=== PATIENT | female | born 1955 | race Caucasian/White ===

== ENCOUNTER 2017-11-20 09:32 | Emergency (ER) | payer OTHER ==
[~2017-11-20] VITALS: Ht 175.3 cm; Wt 72.6 kg
[~2017-11-20 09:32] MED LIST: ESTR.05PBW TOP; FOLI1 PO; HYDSUL200 PO; METTREX2.5 PO; PROC5 PO; PROG100 PO
[2017-11-20 11:09] LABS: BASOPHILS ABSOLUTE AUTO 0.04 K/mm3 (0.00-0.23); BASOPHILS PERCENT AUTO 0 % (0-2); EOSINOPHILS ABSOLUTE AUTO 0.05 K/mm3 (0.00-0.68); EOSINOPHILS PERCENT AUTO 1 % (0-6); Hematocrit 42.1 % (33.0-51.0); Hemoglobin 13.6 g/dL (11.5-16.0); IMMATURE GRAN ABSOLUTE AUTO 0.04 K/mm3 (0.00-0.10); IMMATURE GRAN PERCENT AUTO 0 % (0-1); LYMPHOCYTES ABSOLUTE AUTO 0.83 K/mm3 (0.84-5.20); LYMPHOCYTES PERCENT AUTO 9 % (21-46); MONOCYTES ABSOLUTE AUTO 0.41 K/mm3 (0.16-1.47); MONOCYTES PERCENT AUTO 4 % (4-13); Mean Corpuscular HGB 30.8 pg (26.0-34.0); Mean Corpuscular HGB Conc 32.3 g/dL (31.5-36.5); Mean Corpuscular Volume 95 fL (80-100); Mean Platelet Volume 9.3 fL (9.1-12.4); NEUTROPHILS ABSOLUTE AUTO 8.39 K/mm3 (1.96-9.15); NEUTROPHILS PERCENT AUTO 86 % (41-73); Platelet Count 238 K/mm3 (150-400); RDW Coefficient Variation 12.4 % (11.7-14.2); RDW Standard Deviation 43.6 fL (35.1-46.3); Red Blood Cell Count 4.42 M/mm3 (3.80-5.20); White Blood Cell Count 9.76 K/mm3 (4.00-11.30)
[2017-11-20] MEDS ORDERED: SUMA25 PO (11:28)
[2017-11-20 11:29] LABS: Alanine Aminotransfer (ALT/SGP 19 U/L (12-78); Albumin, Blood 3.4 g/dL (3.4-5.0); Alk Phos 82 U/L (50-136); Anion Gap 7 mmol/L (6-16); Aspartate Aminotrans (AST/SGOT 21 U/L (12-37); Bilirubin, Total 0.3 mg/dL (0.1-1.0); Blood Urea Nitrogen 19 mg/dL (8-24); Bun/Creatinine Ratio 24.1 (12.0-20.0); CO2, Blood 25 mmol/L (21-32); Calcium, Blood 8.4 mg/dL (8.5-10.1); Chloride, Blood 109 mmol/L (98-108); Creatinine, Blood 0.79 mg/dL (0.40-1.00); Globulin, Blood 3.3 g/dL (2.2-4.0); Glomerular Filtration Rate >60 (60-); Glucose, Blood 102 mg/dL (70-99); Potassium, Blood 3.9 mmol/L (3.5-5.5); Sodium, Blood 141 mmol/L (136-145); Total Protein, Blood 6.7 g/dL (6.4-8.2)
[2017-11-20] MEDS ORDERED: KETO10 PO (13:09)
[2017-11-20] MEDS ORDERED: Zofran4 MG PO (13:09)
[2017-11-20] MEDS ORDERED: HYDR1TAB94 PO (13:09)
== END 2017-11-20 13:34 | disposition home or self-care (01) ==
LOC: ER 09:32
PROVIDERS: Emergency Medicine
DX: N13.2 Hydronephrosis with renal and ureteral calculous obstruction (principal); Z88.8 Allergy status to other drugs, medicaments and biological substances; Z88.5 Allergy status to narcotic agent; Z88.0 Allergy status to penicillin; Z79.899 Other long term (current) drug therapy
CPT/HCPCS: 36415; 74176; 80053; 83690; 85025; 96361; 96374; 96375; 96376; 99284; J1170; J2405; J7030

== ENCOUNTER 2018-03-16 02:49 | Emergency (ER) | payer OTHER ==
[~2018-03-16] VITALS: Ht 175.3 cm; Wt 72.6 kg
[~2018-03-16 02:49] MED LIST changes: +HYDR1TAB94 PO; +KETO10 PO; +SUMA25 PO; +Zofran4 MG PO
[2018-03-16] MEDS ORDERED: HORMONE TROCHE (03:08)
[2018-03-16] MEDS ORDERED: Zithromax250 MG PO (05:04)
== END 2018-03-16 05:16 | disposition home or self-care (01) ==
LOC: ER 02:49
DX: J02.9 Acute pharyngitis, unspecified (principal); Z88.6 Allergy status to analgesic agent; Z88.5 Allergy status to narcotic agent; Z88.8 Allergy status to other drugs, medicaments and biological substances; Z88.0 Allergy status to penicillin; Z79.899 Other long term (current) drug therapy
CPT/HCPCS: 87081; 87430; 99283; J1100

== ENCOUNTER → 2020-04-08 | Outpatient (CLI) | payer MEDICARE, BC ==
[~2020-04-08] MED LIST changes: +HORMONE TROCHE; +Zithromax250 MG PO
== END | disposition home or self-care (01) ==
LOC: PLD 14:56 → LAB SHORT 14:56
DX: L57.0 Actinic keratosis (principal)
CPT/HCPCS: 88305

== ENCOUNTER → 2020-10-14 | Outpatient (CLI) | payer MEDICARE, BC | LOC: LAB SHORT 14:38 → LAB 14:38 | DX: D22.72 Melanocytic nevi of left lower limb, including hip (principal) | CPT/HCPCS: 88305 ==

== ENCOUNTER 2021-11-19 13:33 | Emergency (ER) | payer MEDICARE, BC ==
[~2021-11-19] VITALS: Ht 175.3 cm; Wt 73.9 kg
[2021-11-19 14:03] LABS: BASOPHILS ABSOLUTE AUTO 0.06 K/mm3 (0.00-0.23); BASOPHILS PERCENT AUTO 1 % (0-2); EOSINOPHILS ABSOLUTE AUTO 0.26 K/mm3 (0.00-0.68); EOSINOPHILS PERCENT AUTO 3 % (0-6); Hematocrit 41.2 % (33.0-51.0); Hemoglobin 13.8 g/dL (11.5-16.0); IMMATURE GRAN ABSOLUTE AUTO 0.03 K/mm3 (0.00-0.10); IMMATURE GRAN PERCENT AUTO 0 % (0-1); LYMPHOCYTES ABSOLUTE AUTO 2.08 K/mm3 (0.84-5.20); LYMPHOCYTES PERCENT AUTO 21 % (21-46); MONOCYTES ABSOLUTE AUTO 0.61 K/mm3 (0.16-1.47); MONOCYTES PERCENT AUTO 6 % (4-13); Mean Corpuscular HGB 31.4 pg (26.0-34.0); Mean Corpuscular HGB Conc 33.5 g/dL (31.5-36.5); Mean Corpuscular Volume 94 fL (80-100); NEUTROPHILS ABSOLUTE AUTO 6.87 K/mm3 (1.96-9.15); NEUTROPHILS PERCENT AUTO 69 % (41-73); Platelet Count 293 K/mm3 (150-400); RDW Standard Deviation 44.6 fL (35.1-46.3); White Blood Cell Count 9.91 K/mm3 (4.00-11.30)
[2021-11-19 14:17] LABS: Alanine Aminotransfer (ALT/SGP 33 U/L (12-78); Albumin, Blood 3.4 g/dL (3.4-5.0); Albumin/Globulin Ratio 0.9 (0.8-1.8); Alk Phos 87 U/L (50-136); Anion Gap 7 mmol/L (6-16); Aspartate Aminotrans (AST/SGOT 30 U/L (12-37); Bilirubin, Total 0.5 mg/dL (0.1-1.0); Blood Urea Nitrogen 21 mg/dL (8-24); Bun/Creatinine Ratio 24.3 (12.0-20.0); CO2, Blood 24 mmol/L (21-32); Calcium, Blood 9.3 mg/dL (8.5-10.1); Chloride, Blood 108 mmol/L (98-108); Creatinine, Blood 0.86 mg/dL (0.40-1.00); Globulin, Blood 3.6 g/dL (2.2-4.0); Glomerular Filtration Rate >60 (60-); Glucose, Blood 127 mg/dL (70-99); Potassium, Blood 4.2 mmol/L (3.5-5.5); Sodium, Blood 139 mmol/L (136-145)
[2021-11-19 16:26] LABS: BASOPHILS ABSOLUTE AUTO 0.06 K/mm3 (0.00-0.23); BASOPHILS PERCENT AUTO 1 % (0-2); EOSINOPHILS ABSOLUTE AUTO 0.05 K/mm3 (0.00-0.68); EOSINOPHILS PERCENT AUTO 1 % (0-6); Hematocrit 38.7 % (33.0-51.0); Hemoglobin 12.9 g/dL (11.5-16.0); IMMATURE GRAN ABSOLUTE AUTO 0.04 K/mm3 (0.00-0.10); IMMATURE GRAN PERCENT AUTO 0 % (0-1); LYMPHOCYTES ABSOLUTE AUTO 0.96 K/mm3 (0.84-5.20); LYMPHOCYTES PERCENT AUTO 9 % (21-46); MONOCYTES ABSOLUTE AUTO 0.45 K/mm3 (0.16-1.47); MONOCYTES PERCENT AUTO 4 % (4-13); Mean Corpuscular HGB 31.3 pg (26.0-34.0); Mean Corpuscular HGB Conc 33.3 g/dL (31.5-36.5); Mean Corpuscular Volume 94 fL (80-100); Mean Platelet Volume 9.8 fL (9.1-12.4); NEUTROPHILS ABSOLUTE AUTO 9.39 K/mm3 (1.96-9.15); NEUTROPHILS PERCENT AUTO 86 % (41-73); Platelet Count 253 K/mm3 (150-400); RDW Coefficient Variation 12.9 % (11.7-14.2); RDW Standard Deviation 45.1 fL (35.1-46.3); Red Blood Cell Count 4.12 M/mm3 (3.80-5.20); White Blood Cell Count 10.95 K/mm3 (4.00-11.30)
[2021-11-19 16:31] LABS: Source, Urine Clean Catch
[2021-11-19 16:43] LABS: Albumin, Blood 3.3 g/dL (3.4-5.0); Albumin/Globulin Ratio 1.1 (0.8-1.8); Bilirubin, Total 0.3 mg/dL (0.1-1.0); Bun/Creatinine Ratio 24.3 (12.0-20.0); Calcium, Blood 8.7 mg/dL (8.5-10.1); Creatinine, Blood 0.95 mg/dL (0.40-1.00); Potassium, Blood 3.9 mmol/L (3.5-5.5); Total Protein, Blood 6.3 g/dL (6.4-8.2)
[2021-11-19 16:44] LABS: Appearance, Urine Hazy (Clear); Bilirubin, Urine Neg (Neg); Blood, Urine Neg (Neg); Color, Urine Yellow (P-Yellow); Glucose Qualitative, Urine Neg (Neg); Ketones, Urine 2+ (Neg); Leukocyte Esterase, Urine Neg (Neg); Nitrite, Urine Neg (Neg); Protein, Urine 1+ (Neg); Specific Gravity, Urine 1.025 (1.003-1.022); Urobilinogen, Urine NORM (Normal)
[2021-11-19 16:54] LABS: Bacteria Many /hpf
[2021-11-19 16:55] LABS: Squamous Epithelial Cells Few /hpf (Few)
[2021-11-19] MEDS ORDERED: CEPH500 PO (19:26)
== END 2021-11-19 19:50 | disposition home or self-care (01) ==
LOC: ER 13:33
PROVIDERS: Emergency Medicine; Student in an Organized Health Care Education/Training Program
DX: R10.31 Right lower quadrant pain (principal); M06.9 Rheumatoid arthritis, unspecified; Z88.5 Allergy status to narcotic agent; Z88.0 Allergy status to penicillin; Z88.8 Allergy status to other drugs, medicaments and biological substances; Z79.899 Other long term (current) drug therapy
CPT/HCPCS: 74176; 80053; 81001; 83690; 85025; 87077; 87086; 87186; 96374; 96375; 99284-25; A9270; J2270; J2405; J7030

== ENCOUNTER 2021-12-07 08:27 | Day surgery (SDC) | payer MEDICARE, BC ==
[~2021-12-07 08:27] MED LIST changes: +ALORA TOP; +CEPH500 PO
--- NOTE | 2021-12-07 09:14 | NUR ---
PT AMBULATES TO SDS C STEADY GAIT. Patient states colon prep results clear. Patient confirms NPO status and agrees with scheduled surgery. History, Chart, Medications and Allergies reviewed before start of procedure. Lungs clear T/O to Auscultation. Patient States Post-Procedure ride home has been arranged.
--- NOTE | 2021-12-07 09:45 | NUR ---
12/07/21 0945 Bethanie Montoya History, Chart, Medications and Allergies reviewed before start of procedure. Patient confirms NPO status and agrees with scheduled surgery. 3-LEAD EKG REVIEWED WITH PHYSICIAN PRIOR TO START OF PROCEDURE. MONITOR INTACT WITH CONTINUOUS PULSE OXIMETRY AND INTERMITTENT BP. PATIENT DETERMINED TO BE ASA APPROPRIATE FOR PROPOFOL SEDATION PRIOR TO START OF PROCEDURE BY DR. COOK
--- NOTE | 2021-12-07 10:53 | NUR ---
Patient up to Ambulate independently. Gait steady. Discharge instructions reviewed with patient. Patient verbalizes understanding. Copy given to patient to take home. Patient States Post-Procedure ride home has been arranged. Discharged via wheelchair to private car for ride home.
== END 2021-12-07 10:53 | disposition home or self-care (01) ==
LOC: ORSCMMR 08:27
PROVIDERS: Surgery
PROC: 0DJD8ZZ Inspection of Lower Intestinal Tract, Via Natural or Artificial Opening Endoscopic (ICD-10-PCS; principal; 2021-12-07 09:45)
DX: Z12.11 Encounter for screening for malignant neoplasm of colon (principal); Z80.0 Family history of malignant neoplasm of digestive organs; Z79.899 Other long term (current) drug therapy
CPT/HCPCS: J2704; J7120

== ENCOUNTER 2025-05-08 08:18 | Day surgery (SDC) | payer MEDICARE, BC ==
[~2025-05-08] VITALS: Ht 175.3 cm; Wt 77.9 kg
[~2025-05-08 08:18] MED LIST changes: +EST; +ESTROGEN VAG; +LOSA50 PO; +PROGEST; +[UNRECOGNIZED DRUG - OTHER]
--- NOTE | 2025-05-08 09:14 | NUR ---
05/08/25 0914 Sharon Herrera 0845: PER WERNER APPIAH AND MILA OK TO USE LABS THAT ARE FROM 03/21/25 NO NEED TO DRAW NEW LABS
[2025-05-08] MEDS ORDERED: FentaNYL Citrate 50 MCG/ML 2 ML Injection ONE ×2 (09:24→10:50)
[2025-05-08] MEDS ORDERED: Ondansetron HCl 2 MG / ML 2ML Vial ONE ×2 (09:33→10:30)
[2025-05-08] MEDS ORDERED: Dexamethasone Sod Phos 10 MG/ML 1ML VIAL ONE (09:33)
--- NOTE | 2025-05-08 10:18 | NUR ---
05/08/25 1018 Josiane Petersen NORMAL SALINE DEFECIT OF 220ML, DR APPIAH NOTIFIED
[2025-05-08 11:39] VITALS: BP 151/79
== END 2025-05-08 11:50 | disposition home or self-care (01) ==
LOC: ORSCSDS 08:18
PROVIDERS: Obstetrics & Gynecology
PROC: 0UDB8ZX Extraction of Endometrium, Via Natural or Artificial Opening Endoscopic, Diagnostic (ICD-10-PCS; principal; 2025-05-08 09:30)
DX: N95.0 Postmenopausal bleeding (principal); I10 Essential (primary) hypertension; Z79.899 Other long term (current) drug therapy
CPT/HCPCS: 88305; A9270; J1100; J2405; J2704; J3010; J7120

== ENCOUNTER 2025-06-23 08:11 | Day surgery (SDC) | payer MEDICARE, BC ==
[2025-06-23] VITALS (17 sets, daily range): BP systolic 112–148; BP diastolic 59–86
[~2025-06-23] VITALS: Ht 175.3 cm; Wt 78.2 kg
[~2025-06-23 08:11] MED LIST changes: +COMPOUNDED TROCHE PO; +CeFAZolin Sodium 2,000 MG in NS 100 ML IV SCH; -EST; -ESTROGEN VAG; +ONDA4ODT MM; -PROGEST; -[UNRECOGNIZED DRUG - OTHER]; +[UNRECOGNIZED DRUG - OTHER] VAG
[2025-06-23] MEDS ORDERED: Bupivacaine 0.5% W/EPI 1:200000 SDV 30 ML Vial ONE (08:43)
--- NOTE | 2025-06-23 08:50 | NUR ---
AMBULATORY INTO SDS. 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 PT DENIES PAIN, BUT REPORTS FEELING "ANXIOUS" THIS AM. HISTORY AND ALLERGIES REVIEWED. LUNGS CLEAR-SATS>90% ON RA. NPO STATUS CONFIRMED. PT PHONE GIVEN TO HER OLIVIA-OTHER BELONGINGS IN BELONGINGS BAG BELOW THE GURNEY.
[2025-06-23] MEDS ORDERED: Ondansetron HCl 2 MG / ML 2ML Vial ONE (09:35)
[2025-06-23] MEDS ORDERED: Dexamethasone Sod Phos 10 MG/ML 1ML VIAL ONE (09:35)
[2025-06-23] MEDS ORDERED: FentaNYL Citrate 50 MCG/ML 2 ML Injection ONE (09:36)
[2025-06-23] MEDS ORDERED: Midazolam HCl 1MG / ML 2ML Vial ONE (09:36)
[2025-06-23] MEDS ORDERED: Glycopyrrolate 0.2 MG/ML 5ML VIAL ONE (10:12)
[2025-06-23] MEDS ORDERED: ePHEDrine Sulfate 50 MG/ML 1ML Injection ONE (10:14)
[2025-06-23] MEDS ORDERED: HYDROmorphone HCl/Pf 1MG SYR ONE (10:27)
[2025-06-23] MEDS ORDERED: FentaNYL Citrate 50 MCG/ML 2 ML Injection IV PRN ×2 (11:15→11:20)
[2025-06-23] MEDS ORDERED: ePHEDrine Sulfate 50 MG/ML 1ML Injection IV PRN (11:15)
[2025-06-23] MEDS ORDERED: Albuterol 2.5 MG/3 ML VIAL INH PRN (11:15)
[2025-06-23] MEDS ORDERED: Ondansetron HCl 2 MG / ML 2ML Vial IV PRN ×2 (11:20→12:40)
[2025-06-23] MEDS ORDERED: HydrALAZINE HCl 20 MG / ML 1ML Vial IV PRN (11:20)
[2025-06-23] MEDS ORDERED: Metoclopramide HCl 5MG / ML 2ML Vial IV PRN ×2 (11:20→12:40)
[2025-06-23] MEDS ORDERED: Sugammadex Sodium 200 MG/2ML SDV (100 MG/ML) ONE (12:12)
[2025-06-23] MEDS ORDERED: HYDROcodone 5-APAP 325 TAB PO PRN (12:30)
[2025-06-23] MEDS ORDERED: Naloxone HCl 0.4MG / ML 1ML Vial IV PRN (12:35)
[2025-06-23] MEDS ORDERED: HYDROmorphone HCl/Pf 1MG SYR IV PRN (12:45)
[2025-06-23] MEDS ORDERED: Ketorolac Tromethamine 15mg Vial IV PRN (12:55)
--- NOTE | 2025-06-23 14:37 | NUR ---
POST-OP ARRIVES TO ROOM 211 @ 1210, LAP SITES X4 WITH WOUND GLUE C/D/I. VSS, AND CONTINUING. DENIES PAIN AND N/V AT THIS TIME. DROWSY BUT ABLE TO ANSWER QUESTIONS APROPRIATELY. TOLERATING PO INTAKE. CALL LIGHT IN REACH
[2025-06-23] MEDS ORDERED: FLU VACC TS2025(65UP)/MF59C/PF 45 MCG/0.5 ML SYRINGE IM SCH (16:00)
[2025-06-23] MEDS ORDERED: FLU VACC TS2025-26(6MOS UP)/PF 45 MCG/0.5 ML SYRINGE IM SCH (16:00)
--- NOTE | 2025-06-23 18:40 | NUR ---
SHIFT SUMMARY PATIENT IS POD 0 FOR LAP HYSTER TOLERATING PO INTAKE. DENIES NAUSEA, UP TO BATHROOM UNSUCCESSFUL VOID. BLADDER SCAN OF 695, STRAIGHT CATH FOR 625. PATIENT TOLERATED WELL. MEDICATED FOR PAIN PER EMAR. VSS, CALL [facility] IN REACH. REPORT TO FINANCIAL REPORTING DIRECTOR RN.
[2025-06-23] MEDS ORDERED: Polyethylene Glycol 3350 17 gm PO SCH (21:00)
[2025-06-24] VITALS: BP 111/68
[2025-06-24 04:49] VITALS: BP 109/60
--- NOTE | 2025-06-24 06:06 | NUR ---
SHIFT SUMMARY NOC. PT POD 1 FOR ROBOTIC LAP HYSTER AND FIBROID. LAP SITES X4 ARE C/D/I WITH NOTED BRUISING. PT MEDICATED FOR PAIN WITH REPORTED RELIEF. PT NEEDED A STRAIGHT CATH FOR THE SECOND TIME POST OP THIS SHIFT. ONE SPONTANEOUS VOID OF 100ML. PT MEDICATED FOR NAUSEA AND GAS PAINS WELL. PT AMBULATING WELL WITH SBA. MAKES NEEDS KNOWN, CALL LIGHT IN REACH.
[2025-06-24 07:13] VITALS: BP 102/64
[2025-06-24] MEDS ORDERED: BISA10S PR (08:41)
[2025-06-24] MEDS ORDERED: DOCU100 PO (08:41)
[2025-06-24] MEDS ORDERED: MIRALAX17 GM PO (08:42)
[2025-06-24] MEDS ORDERED: Norco 5-325 Ta1 EACH PO (08:42)
[2025-06-24] MEDS ORDERED: SIME80CH PO (08:43)
--- NOTE | 2025-06-24 14:35 | NUR ---
PT VOIDING BETTER THIS AFTERNOON, VOIDED [address] LOWE AWARE AND PLAN TO DC TONIGHT IF STILL VOIDING WELL.
[2025-06-24 15:38] VITALS: BP 112/64
--- NOTE | 2025-06-24 19:28 | NUR ---
SUMMARY: POST VOID RESIDUAL TONIGHT WAS 250, SELLERS INSERTED. DR. LOWE AWARE. OTHERWISE PT IS WALKING IN WHITE, PAIN MANAGED, VSS, A/O. SURGICAL SITES WNL. SCANT VAGINAL BLEED. PLAN IS RE EVALUATE IN MORNING. PT USES CALL LIGHT AND MAKES NEEDS KNOWN
[2025-06-24 19:42] VITALS: BP 149/81
[2025-06-25 02:46] VITALS: BP 129/76
--- NOTE | 2025-06-25 04:30 | NUR ---
SHIFT SUMMARY NOC. PT POD 2 FOR ROBOTIC LAP HYSTER AND FIBROID REMOVAL. PT'S LAP SITES X4 ARE C/D/I WITH NOTED BRUISING. PT'S PAIN MANAGED WITH TYLENOL, TORADOL, AND GAS X. PT UP AMBULATING HALLS THIS SHIFT. PT PASSING FLATUS AND TOLERATING PO, NO N/V. SELLERS CATHETER PATENT AND DRAINING CLEAR YELLOW URINE. PT HAS SCANT-LIGHT PINK VAGINAL BLEEDING ON MONICA PAD. PT MAKES NEEDS KNOWN, CALL LIGHT IN REACH.
[2025-06-25 07:11] VITALS: BP 148/83
--- NOTE | 2025-06-25 10:28 | NUR ---
PT REPORTS MINIMAL INCISIONAL PAIN, PT IS WALKING AND TOLERATING DIET. VSS. A/O. SURGICAL SITES WNL. LUNGS CLEAR. DR. APPIAH SAW PT AT ABOUT 0815, OK TO JUANA SELLERS. MARLO ARIAS'D AT ABOUT 0830. AWAITING VOID. CALL LIGHT IN REACH
--- NOTE | 2025-06-25 12:44 | NUR ---
PT VOIDED 300ML AND PVR WAS 20, PER DR. TD [place] FOR DC. PT GIVEN INSTRUCTIONS, AND LEFT UNIT VIA WHEELCHAIR AT 1245
== END 2025-06-25 12:45 | disposition home or self-care (01) ==
LOC: ORSCMMR 08:11 → ORD 09:30 → ORSCMMR 09:30 → SURS 13:19 → ORSCMMR 06-25 12:45
PROVIDERS: Obstetrics & Gynecology
PROC: 0UT9FZZ Resection of Uterus, Via Natural or Artificial Opening With Percutaneous Endoscopic Assistance (ICD-10-PCS; principal; 2025-06-23 09:30)
PROC: 0UT7FZZ Resection of Bilateral Fallopian Tubes, Via Natural or Artificial Opening With Percutaneous Endoscopic Assistance (ICD-10-PCS; principal; 2025-06-23 09:30)
PROC: 0UT2FZZ Resection of Bilateral Ovaries, Via Natural or Artificial Opening With Percutaneous Endoscopic Assistance (ICD-10-PCS; principal; 2025-06-23 09:30)
DX: N95.0 Postmenopausal bleeding (principal); D25.2 Subserosal leiomyoma of uterus; N73.6 Female pelvic peritoneal adhesions (postinfective); N83.292 Other ovarian cyst, left side; N83.291 Other ovarian cyst, right side; N83.8 Other noninflammatory disorders of ovary, fallopian tube and broad ligament; N72 Inflammatory disease of cervix uteri; I10 Essential (primary) hypertension; E78.5 Hyperlipidemia, unspecified; Z79.899 Other long term (current) drug therapy
CPT/HCPCS: 51701; 88307; A9270; J0690; J1100; J1171; J1885; J2250; J2405; J2704; J3010; J7120